=== PATIENT | female | born 1960 ===

== ENCOUNTER → 2024-10-01 | Outpatient (REF) | payer OTHER ==
[2024-10-01 17:49] LABS: BASO # 0.1 10^3/uL (0.0-0.2); BASO % 0.7 % (0.0-1.0); EOS # 0.4 10^3/uL (0.0-0.5); EOS % 3.7 % (0.0-3.0); LYMPH # 1.3 10^3/uL (1.5-5.0); LYMPH % 12.6 % (24.0-44.0); MONO # 0.6 10^3/uL (0.0-0.8); MONO % 5.7 % (2.0-8.0); NEUTROPHILS # 7.9 10^3/uL (1.5-8.5); NEUTROPHILS % 76.7 % (36.0-66.0); PLATELET COUNT, AUTOMATED 193 10^3/uL (150-450)
== END ==
LOC: M LABDRAWC 17:30
PROVIDERS: ATTEND Internal Medicine
DX: D50.8 Other iron deficiency anemias (principal); C18.4 Malignant neoplasm of transverse colon; D63.1 Anemia in chronic kidney disease; D69.3 Immune thrombocytopenic purpura; D50.0 Iron deficiency anemia secondary to blood loss (chronic); D68.62 Lupus anticoagulant syndrome